=== PATIENT | female | born 1995 | race Caucasian/White ===

== ENCOUNTER 2018-05-19 10:11 | Emergency (ER) | payer SELFPAY ==
--- NOTE | 2018-05-19 10:35 | EDM.PDOC ---
ED HPI GENERAL MEDICAL PROBLEM - General Chief Complaint: ENT Problem Stated Complaint: SORE THROAT Time Seen by Provider: 05/19/18 11:09 Source of Information: Reports: Patient History Limitations: Reports: No Limitations - History of Present Illness INITIAL COMMENTS - FREE TEXT/NARRATIVE: HISTORY AND PHYSICAL: History of present illness: [Patient is a 23 year old female who presents to the ED today complaining of a sore throat for the past 3 days. She states that she decided to come in when she noticed "puss pockets" on her tonsils. She states that she has felt cold off and on but has not checked her temperature at home. She has been taking Ibuprofen OTC as needed for pain and states that it has helped. She has been able to eat and drink although painful to do so. She states she did have an episode of vomiting upon onset of symptoms but has not had any episodes since. She denies difficulties breathing, headache, neck stiffness, or difficulties swallowing.] Review of systems: As per history of present illness and below otherwise all systems reviewed and negative. Past medical history: As per history of present illness and as reviewed below otherwise noncontributory. Surgical history: As per history of present illness and as reviewed below otherwise noncontributory. Social history: No reported history of drug or alcohol abuse. Family history: As per history of present illness and as reviewed below otherwise noncontributory. Physical exam: General: She is sitting comfortably and in no acute distress. HEENT: Atraumatic, normocephalic, pupils reactive, negative for conjunctival pallor or scleral icterus, mucous membranes moist, neck supple, nontender, trachea midline. Posterior oropharynx erythematous and tonsils 2+ but erythematous with white exudates bilaterally Lungs: Clear to auscultation, breath sounds equal bilaterally, chest nontender. Heart: S1S2, regular, negative for clicks, rubs, or JVD. Abdomen: Soft, nondistended, nontender. Negative for masses or hepatosplenomegaly. Negative for costovertebral tenderness. Pelvis: Stable nontender. Genitourinary: Deferred. Rectal: Deferred. Extremities: Atraumatic. Neurovascular unremarkable. Neuro: Awake, alert, oriented. Cranial nerves II through XII unremarkable. Cerebellum unremarkable. Motor and sensory unremarkable throughout. Exam nonfocal. Notes: Diagnostics: [Rapid strep] Therapeutics: [Penicillin 500g TID x 10 days] Impression: [Exudative tonsillitis] Plan: [1. Take antibiotic as directed, alternate Tylenol and Motrin as needed. 2. Follow-up with primary care provider. 3. Return to ED as needed as discussed] Definitive disposition and diagnosis as appropriate pending reevaluation and review of above. Throat Pain Score (Numeric/FACES): 5 - Related Data Allergies Allergy/AdvReac Type Severity Reaction Status Date / Time No Known Allergies Allergy Verified 05/19/18 10:23 Home Meds: Home Meds Penicillin V Potassium 500 mg PO Q8HR #30 tab 05/19/18 [Rx] Past Medical History - Past Health History Medical/Surgical History: Denies Medical/Surgical History - Infectious Disease History Infectious Disease History: Reports: None Social & Family History - Family History Family Medical History: Noncontributory - Tobacco Use Smoking Status *Q: Current Every Day Smoker Years of Tobacco use: 5 Packs/Tins Daily: 1 - Caffeine Use Caffeine Use: Reports: None - Recreational Drug Use Recreational Drug Use: No ED ROS ENT - Review of Systems Review Of Systems: ROS reveals no pertinent complaints other than HPI. ED EXAM, ENT - Physical Exam Exam: See Below (see dictation) Course - Vital Signs Last Recorded V/S: Last Vital Signs Temp 35.9 C 05/19/18 10:24 Pulse 91 05/19/18 10:24 Resp 18 05/19/18 10:24 BP 102/69 05/19/18 10:24 Pulse Ox 98 05/19/18 10:24 - Orders/Labs/Meds Orders: Active Orders 24 hr Category Date Time Status CULTURE STREP A CONFIRMATION [] Stat Lab 05/19/18 10:35 Results STREP SCRN A RAPID W CULT CONF [] Stat Lab 05/19/18 10:35 Results Penicillin V Potassium [Veetids] Med 05/19/18 11:00 Stop Req 500 mg PO Q8H Medication Orders Penicillin V Potassium (Veetids) 500 mg PO Q8H MAURICIO Meds: Medications Generic Name Dose Route Start Last Admin Trade Name Freq PRN Reason Stop Dose Admin Penicillin V Potassium 500 mg 05/19/18 11:00 Veetids PO Q8H MAURICIO Departure - Departure Time of Disposition: 10:56 Disposition: Home, Self-Care 01 Condition: Good Clinical Impression: Acute tonsillitis - Discharge Information Prescriptions: Penicillin V Potassium 500 mg PO Q8HR #30 tab Referrals: PCP,None [Primary Care Provider] - Forms: ED Department Discharge Additional Instructions: The following information is given to patients seen in the emergency department who are being discharged to home. This information is to outline your options for follow-up care. We provide all patients seen in our emergency department with a follow-up referral. The need for follow-up, as well as the timing and circumstances, are variable depending upon the specifics of your emergency department visit. If you don't have a primary care physician on staff, we will provide you with a referral. We always advise you to contact your personal physician following an emergency department visit to inform them of the circumstance of the visit and for follow-up with them and/or the need for any referrals to a consulting specialist. The emergency department will also refer you to a specialist when appropriate. This referral assures that you have the opportunity for follow-up care with a specialist. All of these measure are taken in an effort to provide you with optimal care, which includes your follow-up. Under all circumstances we always encourage you to contact your private physician who remains a resource for coordinating your care. When calling for follow-up care, please make the office aware that this follow-up is from your recent emergency room visit. If for any reason you are refused follow-up, please contact the [facility] Emergency Department at and asked to speak to the emergency department charge nurse. [facility] Primary Care [address] [place] [address] [id number] [id number] 1. Take antibiotic as directed, alternate Tylenol and Motrin as needed. 2. Follow-up with primary care provider. 3. Return to ED as needed as discussed - My Orders Last 24 Hours: My Active Orders 05/19/18 10:35 CULTURE STREP A CONFIRMATION [] Stat STREP SCRN A RAPID W CULT CONF [] Stat 05/19/18 11:00 Penicillin V Potassium [Veetids] 500 mg PO Q8H - Assessment/Plan Last 24 Hours: My Active Orders 05/19/18 10:35 CULTURE STREP A CONFIRMATION [] Stat STREP SCRN A RAPID W CULT CONF [] Stat 05/19/18 11:00 Penicillin V Potassium [Veetids] 500 mg PO Q8H
[2018-05-19] MEDS ORDERED: Penicillin V Potassium 500 MG Tab PO SCH (11:00)
== END 2018-05-19 11:15 | disposition home or self-care (01) ==
LOC: MW.ED 10:11
DX: J03.90 Acute tonsillitis, unspecified (principal); F17.210 Nicotine dependence, cigarettes, uncomplicated
CPT/HCPCS: 87081; 87880-QW; 99283

== ENCOUNTER 2018-05-21 12:52 | Emergency (ER) | payer SELFPAY ==
--- NOTE | 2018-05-21 13:11 | EDM.PDOC ---
ED HPI GENERAL MEDICAL PROBLEM - General Chief Complaint: ENT Problem Stated Complaint: SORE THROAT Time Seen by Provider: 05/21/18 12:57 Source of Information: Reports: Patient History Limitations: Reports: No Limitations - History of Present Illness INITIAL COMMENTS - FREE TEXT/NARRATIVE: HISTORY AND PHYSICAL: History of present illness: Patient is a 23-year-old female who presents to the emergency room with complaints of throat pain and swelling to the posterior oropharynx. She was evaluated in the emergency room 2 days prior and placed on Pen-VK and encouraged to use [id number] Tylenol and ibuprofen. Patient states she has been taking the antibiotic as directed but states her throat pain is unresolved. Review of systems: As per history of present illness and below otherwise all systems reviewed and negative. Past medical history: As per history of present illness and as reviewed below otherwise noncontributory. Surgical history: As per history of present illness and as reviewed below otherwise noncontributory. Social history: No reported history of drug or alcohol abuse. Family history: As per history of present illness and as reviewed below otherwise noncontributory. Physical exam: General: Well-developed and well-nourished 23-year-old female. Alert and oriented. Nontoxic appearing and in no acute distress. HEENT: Atraumatic, normocephalic, pupils equal and reactive bilaterally, negative for conjunctival pallor or scleral icterus, mucous membranes moist, mild errythema noted the posterior oropharynx with exudate to bilateral tonsils , no pillar shifting. Her neck supple, nontender, trachea midline. No drooling or trismus noted. No meningeal signs Lungs: Clear to auscultation, breath sounds equal bilaterally, chest nontender. Heart: S1S2, regular rate and rhythm without overt murmur Abdomen: Soft, nondistended, nontender. Negative for masses or hepatosplenomegaly. Negative for costovertebral tenderness. Pelvis: Stable nontender. Genitourinary: Deferred. Rectal: Deferred. Skin: Intact, warm, dry. No lesions or rashes noted. Extremities: Atraumatic, negative for cords or calf pain. Neurovascular unremarkable. Neuro: Awake, alert, oriented. Cranial nerves II through XII unremarkable. Cerebellum unremarkable. Motor and sensory unremarkable throughout. Exam nonfocal. Notes: Vitals are within normal limitis. We discussed close follow up with ENT for definitive care. D/c instructions reviewed and discussed. She is agreeable to plan of care. Denies any further questions or concerns. Diagnostics: [] Therapeutics: [] Impression: Throat Pain Plan: 1. Please continue with your antibiotic as directed. 2. Please take the Medrol Dosepak as directed. Phenergan with codeine has been prescribed for pain. This medication may cause drowsiness so do not take it will driving her needing to be functioning outside of the house. You may continue to use Tylenol and ibuprofen as needed. 3. Small frequent sips of fluids to prevent dehydration. 4. Please establish care and follow-up with the manager research, Dr. Chaudhary within this week. Return to the ED as needed and as discussed Definitive disposition and diagnosis as appropriate pending reevaluation and review of above. throat Pain Score (Numeric/FACES): 9 - Related Data Allergies Allergy/AdvReac Type Severity Reaction Status Date / Time No Known Allergies Allergy Verified 05/21/18 13:03 Home Meds: Home Meds Penicillin V Potassium 500 mg PO Q8HR #30 tab 05/19/18 [Rx] Codeine/Promethazine [Phenergan with Codeine] 5 ml PO Q4HR PRN #1 bottle [Rx] methylPREDNISolone [Medrol] 4 mg PO DAILY #1 dospk 05/21/18 [Rx] Past Medical History - Past Health History Medical/Surgical History: Denies Medical/Surgical History - Infectious Disease History Infectious Disease History: Reports: None Social & Family History - Family History Family Medical History: Noncontributory - Tobacco Use Smoking Status *Q: Current Every Day Smoker Years of Tobacco use: 5 Packs/Tins Daily: 1 - Caffeine Use Caffeine Use: Reports: None - Alcohol Use Days Per Week of Alcohol Use: 3 Number of Drinks Per Day: 3 Total Drinks Per Week: 9 - Recreational Drug Use Recreational Drug Use: No ED ROS ENT - Review of Systems Review Of Systems: ROS reveals no pertinent complaints other than HPI. ED EXAM, ENT - Physical Exam Exam: See Below (See dictation) Course - Vital Signs Last Recorded V/S: Last Vital Signs Temp 97.4 F 05/21/18 13:36 Pulse 88 05/21/18 13:36 Resp 18 05/21/18 13:04 BP 99/63 05/21/18 13:36 Pulse Ox 100 05/21/18 13:36 Departure - Departure Time of Disposition: 13:20 Disposition: Home, Self-Care 01 Clinical Impression: Throat pain Acute tonsillitis Qualifiers: Pharyngitis/tonsillitis etiology: unspecified etiology Qualified Code(s): J03.90 - Acute tonsillitis, unspecified - Discharge Information Prescriptions: Codeine/Promethazine [Phenergan with Codeine] 5 ml PO Q4HR PRN #1 bottle PRN Reason: Throat pain methylPREDNISolone [Medrol] 4 mg PO DAILY #1 dospk Instructions: Tonsillitis, [id number] Referrals: PCP,None [Primary Care Provider] - Forms: ED Department Discharge Additional Instructions: The following information is given to patients seen in the emergency department who are being discharged to home. This information is to outline your options for follow-up care. We provide all patients seen in our emergency department with a follow-up referral. The need for follow-up, as well as the timing and circumstances, are variable depending upon the specifics of your emergency department visit. If you don't have a primary care physician on staff, we will provide you with a referral. We always advise you to contact your personal physician following an emergency department visit to inform them of the circumstance of the visit and for follow-up with them and/or the need for any referrals to a consulting specialist. The emergency department will also refer you to a specialist when appropriate. This referral assures that you have the opportunity for follow-up care with a specialist. All of these measure are taken in an effort to provide you with optimal care, which includes your follow-up. Under all circumstances we always encourage you to contact your private physician who remains a resource for coordinating your care. When calling for follow-up care, please make the office aware that this follow-up is from your recent emergency room visit. If for any reason you are refused follow-up, please contact the [facility] Emergency Department at and asked to speak to the emergency department charge nurse. [facility] Specialty Care - ENT DR CHAUDHARY [address] [place] [phone] 1. Please continue with your antibiotic as directed. 2. Please take the Medrol Dosepak as directed. Phenergan with codeine has been prescribed for pain. This medication may cause drowsiness so do not take it will driving her needing to be functioning outside of the house. You may continue to use Tylenol and ibuprofen as needed. 3. Small frequent sips of fluids to prevent dehydration. 4. Warm salt water gargle rinse and spit 2-4 times daily. Please get a new tooth brush once your antibiotic is completed. 5. Please establish care and follow-up with the manager research, Dr. Chaudhary within this week. Return to the ED as needed and as discussed
== END 2018-05-21 13:39 | disposition home or self-care (01) ==
LOC: MW.ED 12:52
DX: J03.90 Acute tonsillitis, unspecified (principal); F17.210 Nicotine dependence, cigarettes, uncomplicated; Z79.899 Other long term (current) drug therapy
CPT/HCPCS: 99282

== ENCOUNTER 2018-05-24 08:49 | Emergency (ER) | payer SELFPAY ==
--- NOTE | 2018-05-24 09:13 | EDM.PDOC ---
ED HPI GENERAL MEDICAL PROBLEM - General Chief Complaint: ENT Problem Stated Complaint: SORE THROAT Time Seen by Provider: 05/24/18 09:02 Source of Information: Reports: Patient History Limitations: Reports: No Limitations - History of Present Illness INITIAL COMMENTS - FREE TEXT/NARRATIVE: History of present illness: []Patient has had a sore throat for a week. She was recently diagnosed with pharyngitis and treated with Pen-Vee K. She is scheduled for tonsillectomy on the of this month. Review of systems: As per history of present illness and below otherwise all systems reviewed and negative. Past medical history: As per history of present illness and as reviewed below otherwise noncontributory. Surgical history: As per history of present illness and as reviewed below otherwise noncontributory. Social history: No reported history of drug or alcohol abuse. Family history: As per history of present illness and as reviewed below otherwise noncontributory. Physical exam: General: Well developed, well nourished in NAD HEENT: Atraumatic, normocephalic, pupils reactive, negative for conjunctival pallor or scleral icterus, mucous membranes moist, throat erythematous with exudate, anterior cervical lymph node on the right palpable neck supple, nontender, trachea midline. Lungs: Clear to auscultation, breath sounds equal bilaterally, chest nontender. Heart: S1S2, regular, negative for clicks, rubs, or JVD. Abdomen: Soft, nondistended, nontender. Negative for masses or hepatosplenomegaly. Negative for costovertebral tenderness. Pelvis: Stable nontender. Genitourinary: Deferred. Rectal: Deferred. Extremities: Atraumatic, negative for cords or calf pain. Neurovascular unremarkable. Neuro: Awake, alert, oriented. Cranial nerves II through XII unremarkable. Cerebellum unremarkable. Motor and sensory unremarkable throughout. Exam nonfocal. Skin: Severe sunburn throughout Diagnostics: [] Therapeutics: []Tolerating fluids by mouth's in the ED Impression: []Acute pharyngitis Plan: []Zithromax as directed follow-up with primary care or ENT as needed. Definitive disposition and diagnosis as appropriate pending reevaluation and review of above. Throat Pain Score (Numeric/FACES): 8 - Related Data Allergies Allergy/AdvReac Type Severity Reaction Status Date / Time No Known Allergies Allergy Verified 05/24/18 09:01 Home Meds: Home Meds Penicillin V Potassium 500 mg PO Q8HR #30 tab 05/19/18 [Rx] Codeine/Promethazine [Phenergan with Codeine] 5 ml PO Q4HR PRN #1 bottle [Rx] methylPREDNISolone [Medrol] 4 mg PO DAILY #1 dospk 05/21/18 [Rx] Azithromycin [Zithromax] 250 mg PO DAILY #6 tab 05/24/18 [Rx] Past Medical History - Past Health History Medical/Surgical History: Denies Medical/Surgical History - Infectious Disease History Infectious Disease History: Reports: None Social & Family History - Family History Family Medical History: Noncontributory - Tobacco Use Smoking Status *Q: Current Every Day Smoker Years of Tobacco use: 5 Packs/Tins Daily: 1 - Caffeine Use Caffeine Use: Reports: Coffee, Soda - Recreational Drug Use Recreational Drug Use: No ED ROS ENT - Review of Systems Review Of Systems: See Below (See history of present illness) ED EXAM, ENT - Physical Exam Exam: See Below (See history of present illness) Course - Vital Signs Last Recorded V/S: Last Vital Signs Temp 99.8 F 05/24/18 08:58 Pulse 97 05/24/18 08:58 Resp 18 05/24/18 08:58 BP 96/60 05/24/18 08:58 Pulse Ox 97 05/24/18 08:58 Departure - Departure Time of Disposition: 09:12 Disposition: Home, Self-Care 01 Condition: Good Clinical Impression: Acute pharyngitis Qualifiers: Pharyngitis/tonsillitis etiology: unspecified etiology Qualified Code(s): J02.9 - Acute pharyngitis, unspecified - Discharge Information Prescriptions: Azithromycin [Zithromax] 250 mg PO DAILY #6 tab Referrals: PCP,None [Primary Care Provider] - Additional Instructions: The following information is given to patients seen in the emergency department who are being discharged to home. This information is to outline your options for follow-up care. We provide all patients seen in our emergency department with a follow-up referral. The need for follow-up, as well as the timing and circumstances, are variable depending upon the specifics of your emergency department visit. If you don't have a primary care physician on staff, we will provide you with a referral. We always advise you to contact your personal physician following an emergency department visit to inform them of the circumstance of the visit and for follow-up with them and/or the need for any referrals to a consulting specialist. The emergency department will also refer you to a specialist when appropriate. This referral assures that you have the opportunity for follow-up care with a specialist. All of these measure are taken in an effort to provide you with optimal care, which includes your follow-up. Under all circumstances we always encourage you to contact your private physician who remains a resource for coordinating your care. When calling for follow-up care, please make the office aware that this follow-up is from your recent emergency room visit. If for any reason you are refused follow-up, please contact the [facility] Emergency Department at and asked to speak to the emergency department charge nurse. [facility] Primary Care [address] [place] [id number]
== END 2018-05-24 09:55 | disposition home or self-care (01) ==
LOC: MW.ED 08:49
DX: J02.9 Acute pharyngitis, unspecified (principal); F17.210 Nicotine dependence, cigarettes, uncomplicated; Z79.899 Other long term (current) drug therapy
CPT/HCPCS: 99282

== ENCOUNTER 2023-12-29 08:29 | Inpatient (IN) | payer MEDICAID ==
[2023-12-29] MEDS ORDERED: Lidocaine 1% 50 ML MDV INJECT PRN (08:33)
[2023-12-29] MEDS ORDERED: Sodium Chloride 0.9% 2.5 ML Syringe FLUSH PRN (08:33)
[2023-12-29] MEDS ORDERED: Sodium Chloride 0.9% 20 ML SDV IV PRN (08:33)
[2023-12-29] MEDS ORDERED: Sodium Chloride 0.9% 10 ML Syringe FLUSH PRN (08:33)
[2023-12-29] MEDS ORDERED: Water For Irrigation,Sterile 1,000 ML Container IRR PRN (08:33)
[2023-12-29] MEDS ORDERED: Carboprost Tromethamine 250 MCG/1 mL Vial IM PRN (08:33)
[2023-12-29] MEDS ORDERED: Methylergonovine 0.2 MG/1 ML Amp IM PRN (08:33)
[2023-12-29] MEDS ORDERED: Tranexamic Acid IN NACL,ISO-OS 1,000 MG in Premix Bag 1 BAG IV PRN (08:33)
[2023-12-29] MEDS ORDERED: Ondansetron 4 MG/2 ML SDV IVPUSH PRN (08:33)
[2023-12-29] MEDS ORDERED: Misoprostol 200 MCG Tab PO PRN (08:33)
[2023-12-29] MEDS ORDERED: Oxytocin/0.9 % Sodium Chloride 30 UNIT/500 ML BAG IV SCH (08:45)
[2023-12-29] MEDS: Lactated Ringers 1,000 ML IV SCH (08:55)
[2023-12-29] MEDS: Nalbuphine 10 MG/0.5 ML Syringe IVPUSH PRN (09:00)
[2023-12-29 09:23] LABS: HEMATOCRIT 35.7 % (37.0-47.0); HEMOGLOBIN 11.8 g/dL (12.0-16.0); MEAN CORPUSCULAR HEMOGLOBIN 26.9 pg (28.0-32.0); MEAN CORPUSCULAR HGB CONC 33.1 g/dL (32.0-36.0); MEAN CORPUSCULAR VOLUME 81.5 fL (83.0-99.0); MEAN PLATELET VOLUME 12.8 fL (9.4-12.3); PLATELET COUNT,PLT 210 K/uL (150-400); RED BLOOD CELL COUNT 4.38 M/uL (4.10-5.30); WHITE BLOOD CELL COUNT,WBC 15.21 K/uL (3.9-11.3)
[2023-12-29] MEDS ORDERED: Docusate Sodium 100 MG Cap PO PRN (11:51)
[2023-12-29] MEDS ORDERED: Lanolin 100% Cream 7 GM Tube TOP PRN (11:51)
[2023-12-29] MEDS: Oxytocin 10 Units/1 ML SDV ONE (13:20)
[2023-12-29] MEDS: Ibuprofen 800 MG Tab PO PRN (13:54)
[2023-12-29] MEDS: Witch Hazel Medicated Pads 40/Jar TOP PRN (14:02)
[2023-12-29] MEDS: Benzocaine/Menthol 20%-0.5% Spray 78 GM Cannister TOP PRN (14:02)
[2023-12-29] MEDS: Acetaminophen 500 MG Tab PO PRN (18:14)
[2023-12-30 07:22] LABS: HEMATOCRIT 32.7 % (37.0-47.0); HEMOGLOBIN 10.6 g/dL (12.0-16.0)
== END 2023-12-30 15:39 | disposition home or self-care (01) | DRG 807 ==
LOC: MW.OBCHECK 08:29 → MW.OB 10:01 → MW.OBCHECK 12:11 → MW.OB 12:12
PROVIDERS: ADMIT Obstetrics & Gynecology Obstetrics; ATTEND Obstetrics & Gynecology Obstetrics
PROC: 10E0XZZ Delivery of Products of Conception, External Approach (ICD-10-PCS; principal; 2023-12-29)
DX: O77.0 Labor and delivery complicated by meconium in amniotic fluid (principal); Z37.0 Single live birth; Z3A.39 39 weeks gestation of pregnancy
CPT/HCPCS: 36415; 59025; 59409; 85014; 85018; 85027; 86592; 86850; 86900; 86901; A9270-GY; J2300; J2590; J7120

== ENCOUNTER 2024-02-21 23:09 | Emergency (ER) | payer MEDICAID ==
[2024-02-22] MEDS: Lidocaine 4% 1 each Patch TOP STA (00:01)
[2024-02-22] MEDS: Diazepam 5 MG Tab PO ONE (00:01)
[2024-02-22] MEDS: Acetaminophen 500 MG Tab PO ONE (01:26)
== END 2024-02-22 01:44 | disposition home or self-care (01) ==
LOC: MW.ED 23:09
DX: M54.42 Lumbago with sciatica, left side (principal); Z79.899 Other long term (current) drug therapy
CPT/HCPCS: 73502; 99283; A9270

== ENCOUNTER 2024-03-03 14:14 | Emergency (ER) | payer MEDICAID ==
[2024-03-03] MEDS: methylPREDNISolone Sodium Succinate 125 MG/2 ML SDV IVPUSH ONE (14:41)
[2024-03-03] MEDS: Morphine 4 MG/ML Syringe IVPUSH ONE (14:41)
[2024-03-03] MEDS: Ondansetron 4 MG/2 ML SDV IVPUSH ONE (14:41)
[2024-03-03] MEDS: Sodium Chloride 0.9% 1,000 ML IV SCH (14:41)
[2024-03-03 14:51] LABS: BASOPHILS ABSOLUTE AUTO 0.02 K/uL (0.00-0.20); BASOPHILS PERCENT AUTO 0.2 % (0.0-1.0); EOSINOPHILS ABSOLUTE AUTO 0.29 K/uL (0.00-0.45); EOSINOPHILS PERCENT AUTO 3.5 % (0.0-6.0); HEMATOCRIT 36.9 % (37.0-47.0); HEMOGLOBIN 11.9 g/dL (12.0-16.0); IMMATURE GRAN ABSOLUTE AUTO 0.02 K/uL (0.00-0.05); IMMATURE GRAN PERCENT AUTO 0.2 % (0.0-0.4); LYMPHOCYTES ABSOLUTE AUTO 2.95 K/uL (1.00-4.80); LYMPHOCYTES PERCENT AUTO 35.9 % (24.0-44.0); MEAN CORPUSCULAR HEMOGLOBIN 26.4 pg (28.0-32.0); MEAN CORPUSCULAR HGB CONC 32.2 g/dL (32.0-36.0); MEAN PLATELET VOLUME 10.7 fL (9.4-12.3); MONOCYTES ABSOLUTE AUTO 0.65 K/uL (0.00-0.80); MONOCYTES PERCENT AUTO 7.9 % (0.0-8.0); NEUTROPHILS ABSOLUTE AUTO 4.29 K/uL (1.80-7.70); NEUTROPHILS PERCENT AUTO 52.3 % (41.0-71.0); PLATELET COUNT,PLT 256 K/uL (150-400); WHITE BLOOD CELL COUNT,WBC 8.22 K/uL (3.9-11.3)
[2024-03-03] MEDS: HYDROmorphone 1 MG/ML Syringe IVPUSH ONE (15:34)
[2024-03-03 16:26] LABS: APPEARANCE,URINE CLEAR; BILIRUBIN,URINE NEGATIVE (NEGATIVE); COLOR,URINE YELLOW; GLUCOSE,URINE NEGATIVE (NEGATIVE); KETONES,URINE NEGATIVE (NEGATIVE); LEUKOCYTE ESTERASE,URINE NEGATIVE (NEGATIVE); NITRITE,URINE NEGATIVE (NEGATIVE); OCCULT BLOOD,URINE NEGATIVE (NEGATIVE); PROTEIN,URINE NEGATIVE (NEGATIVE); UROBILINOGEN,URINE 0.2 EU/dL (<2.0)
[2024-03-03 16:53] LABS: BILIRUBIN TOTAL 0.3 mg/dL (0.2-1.0); CALCIUM 9.4 mg/dL (8.5-10.1); CARBON DIOXIDE,CO2 24.4 mmol/L (21.0-32.0); EST CRCL DRUG DOSING (CG) 76.71 mL/min; POTASSIUM,K 4.1 mmol/L (3.5-5.1); PROTEIN TOTAL,TP 7.2 g/dL (6.4-8.2)
[2024-03-03 17:00] LABS: A/G RATIO 1.1 (0.9-1.6); ALBUMIN 3.7 g/dL (3.4-5.0)
== END 2024-03-03 17:14 | disposition home or self-care (01) ==
LOC: MW.ED 14:14
DX: O99.893 Other specified diseases and conditions complicating puerperium (principal); M54.42 Lumbago with sciatica, left side; I10 Essential (primary) hypertension; E11.9 Type 2 diabetes mellitus without complications
CPT/HCPCS: 36415; 73502; 80053; 81003; 85025; 96361; 96374; 96375; 99284; J1170; J2270; J2405; J2930; J7030